=== PATIENT | male | born 1985 | race Caucasian/White ===

== ENCOUNTER 2018-07-22 05:11 | Inpatient (IN) ==
[2018-07-22] MEDS ORDERED: LR 1,000 ML ONE (05:37)
[2018-07-22] MEDS ORDERED: KEFZOL 2 GM/D5W 2 GM/50 ML IVPB ONE (05:37)
[2018-07-22] MEDS ORDERED: DIPRIVAN 1% ONE (06:39)
[2018-07-22] MEDS ORDERED: XYLOCAINE-MPF 2% ONE (06:39)
[2018-07-22] MEDS ORDERED: QUELICIN (DOSE) ONE (06:41)
[2018-07-22] MEDS ORDERED: FENTANYL ONE (06:43)
[2018-07-22] MEDS ORDERED: VERSED ONE (06:43)
[2018-07-22] MEDS ORDERED: OFIRMEV 1000 MG/ISOTONIC SOLN 1,000 MG/100 ML BOTTLE ONE (07:37)
[2018-07-22] MEDS ORDERED: MORPHINE IV PRN (07:45)
[2018-07-22] MEDS ORDERED: PERCOCET-5 ONE (08:09)
[2018-07-22] MEDS: MORPHINE ONE ×2 (08:21→09:07)
--- NOTE | 2018-07-22 09:18 | OPERATIVE NOTE ---
PROCEDURE DATE: 07/22/2018 PREOPERATIVE DIAGNOSES: 1. Right index finger distal phalanx osteomyelitis. 2. Right index finger middle phalanx osteomyelitis. 3. Right index finger mallet finger. POSTOPERATIVE DIAGNOSES: 1. Right index finger distal phalanx osteomyelitis. 2. Right index finger middle phalanx osteomyelitis. 3. Right index finger mallet finger. PROCEDURES: 1. Right index finger irrigation and debridement to bone of the distal phalanx and the middle phalanx. 2. Right open reduction and percutaneous pinning of mallet finger index. SURGEON: Dr. Evan Alamo. PRODUCT TEST SPECIALIST: None. ANESTHESIA: General with LMA. ESTIMATED BLOOD LOSS: 10 mL. SPECIMENS: Cultures were taken. IMPLANTS: K-wire. DISPOSITION: To PACU, hemodynamically stable. INDICATION FOR PROCEDURE: Mr. Chairez is a 32-year-old male, who I have seen in clinic for evaluation of his right finger. He had an injury about a month ago. Unfortunately, he still has a lot of redness, pain and again MRI which did show some significant change of both the distal phalanx and the middle phalanx of that index finger. So, discussed with him about operative intervention. He expressed understanding and wished to proceed. DESCRIPTION OF PROCEDURE: Mr. Chairez was identified at preoperative holding area. The right index finger was marked as the correct surgical site. He was then wheeled to the operating room, placed supine on the operating table. All bony prominences well padded. He was induced under general anesthesia. LMA was placed. Right upper extremity was then prepped with chlorhexidine gluconate scrub and then ChloraPrep, and draped in normal sterile fashion. Surgical pause was performed. We identified the correct patient, correct side, and the correct procedure. Preop antibiotics were given. I started with a Dawson drain as a finger tourniquet; that was up for about 30 minutes. I made a transverse incision over the DIP joint. Dissection was carried down. I did not see a lot of purulence in the soft tissues. Came down to the joint. The cartilage looked pretty good there. I then extended that incision proximally on the ulnar side of the transverse incision, and made a flap of skin back so we could see the dorsal aspect of that middle phalanx. I made a little window in the dorsal aspect of the bone, and there was just what looked like a little bit of purulence down in the bone itself. It did not look terrible, but I went ahead and curetted that area out to get back to good-appearing bone. Then I did the same thing with the distal phalanx. I was able to go dorsally, go down inside the bone, and it seemed like there was just a little bit of purulence that was there. I did curette that out and open it up. Then we irrigated everything copiously with normal saline. I then used a K-wire and was able to pin the finger straight in extension at the DIP joint. I then closed it with nylon. Adaptic, 4 x 4s, and soft dressing were applied. Tourniquet was let down. He had good capillary refill return to the finger. He was then wheeled from general anesthesia, moved to his own bed and taken to the PACU in stable condition. Postop he will be admitted to the hospital. I will get Infectious Disease to see him, and will wait for his cultures to come back and tailor his antibiotics. cc: Evan Alamo MD
[2018-07-22] MEDS ORDERED: VANCOMYCIN IV PER PHARMACY MISC SCH (11:45)
--- NOTE | 2018-07-22 12:17 | INFECTIOUS DISEASE CONSULT REP ---
DATE: 07/22/2018 CONCLUSION: Patient is status post surgery performed by Dr. Alamo for osteomyelitis of the right index finger. Gram stain from the material of surgery shows no bacteria. RECOMMENDATIONS: I have discontinued the cefazolin and started the patient on vancomycin and cefepime pending final culture results. I have ordered for tomorrow a CBC and BMP also. DISCUSSION: The patient on June 20 cut his right index finger with a knife by accident. The finger proceeded to swell up despite being given 2 rounds of antibiotics. He was taken to surgery by Dr. Alamo. PAST MEDICAL HISTORY/REVIEW OF SYSTEMS: Eyes and ears: No difficulty hearing or seeing. Neck: No stiffness. Respiratory: No cough or shortness of breath. Cardiac: No chest pain or palpitations. GI: No nausea, vomiting, or diarrhea. : No dysuria or flank pain. Bones, joints, muscles: See present illness. Neurologic: The patient does not have seizures. He has not recently lost any motor or sensory function. PREVIOUS HOSPITALIZATIONS AND OPERATIONS: He has had extraction of teeth. He has had tonsillectomy and he once was admitted with rhabdomyolysis which occurred when he was exercising in hot weather without keeping himself hydrated. MEDICAL DISEASES: Positive for rhabdomyolysis. Negative for diabetes for hypertension. INFECTIOUS DISEASE HISTORY: Negative for pneumonia and UTI. FAMILY HISTORY: Positive for diabetes mellitus, hypertension, myocardial infarction, and cancer. SOCIAL HISTORY: [place]; he is . He is a patients transporter. He chews tobacco. He occasionally drinks alcoholic beverages. He does not abuse drugs. He has dogs and cats as pets. MEDICATIONS: He takes Adderall and Prozac at home. ALLERGIES: He has no known drug allergies. PHYSICAL EXAMINATION: Vital Signs: Temperature is 98 degrees, pulse 60, respirations 20, blood pressure 150/70. Patient is 6 feet tall, weighs 215 pounds. General: This is a healthy- appearing, slightly obese, young male. He is in no acute distress. Head, eyes, ears, nose, and throat: Can hear my spoken words and see near objects. No drainage noted from the nose or ears. He does not have any white coating on his tongue. Neck: There is no pain when he moves his head. Lungs: Clear to auscultation. Cardiovascular: Regular heart rate. Abdomen: Soft and nontender. Neurologic: Patient is alert, he can move his extremities. There is no tremor. His sensation is intact to touch. His memory as regarding his medical history is good. Integument: No rash. Extremities: The patient's right index finger has a large dressing around it; the dressing is intact. Thank you for the consult. cc: MD Evan Powell MD
[2018-07-22] MEDS: ADDERALL PO SCH (12:42)
[2018-07-22] MEDS ORDERED: KEFZOL 1 GM/D5W 1 GM/50 ML IVPB IV SCH (15:00)
[2018-07-22] MEDS: MAXIPIME 2 GM in NS 100 ML IV SCH (15:27)
[2018-07-22] MEDS: OXY IR PO PRN ×2 (15:33→20:00)
[2018-07-22] MEDS: VANCOMYCIN 2 GM in NS 500 ML IV SCH (17:25)
[2018-07-22] MEDS: PERIDEX MT SCH (21:25)
[2018-07-23] MEDS: MAXIPIME 2 GM in NS 100 ML IV SCH ×2 (03:48→15:11)
[2018-07-23] MEDS: VANCOMYCIN 2 GM in NS 500 ML IV SCH ×2 (04:27→16:48)
[2018-07-23 06:14] LABS: BASO# 0.02 X1000 (0.0-0.2); BASO% 0.2 % (0.0-0.8); EOS# 0.04 X1000 (0.0-0.7); EOS% 0.3 % (0.0-10.0); HEMATOCRIT 41.8 % (42.0-52.0); HEMOGLOBIN 14.6 g/dL (14.0-18.0); LYMPH# 2.23 X1000 (1.2-3.4); LYMPH% 16.8 % (20.5-51.1); MCH 31.1 PG (27-31); MCHC 34.9 g/dL (33-37); MCV 88.9 FL (81-99); MONO# 0.91 X1000 (0.11-0.59); MONO% 6.9 % (1.7-9.3); MPV 10.5 FL (7.4-10.4); NEUT# 10.04 X1000 (1.4-6.5); NEUT% 75.8 % (42.2-75.2); PLT 225 X1000 (130-400); RDW 11.7 % (11.5-14.5); WBC 13.24 X1000 (4.8-10.8)
[2018-07-23 06:34] LABS: AGAP 8; BUN 15 mg/dL (8-22); CALCIUM 8.8 mg/dL (8.8-10.2); CHLORIDE 104 mmol/L (98-107); COSMO 280; CREATININE 0.9 mg/dL (0.7-1.2); ESTIMATED GFR > 60; GLUCOSE 121 mg/dL (70-104); POTASSIUM 4.4 mmol/L (3.5-5.1); SODIUM 139 mmol/L (136-145); TCO2 27 mmol/L (25-35)
[2018-07-23] MEDS: ADDERALL PO SCH ×2 (08:01→15:10)
[2018-07-23] MEDS: OXY IR PO PRN ×3 (08:01→20:58)
[2018-07-23] MEDS: PROZAC PO SCH (08:01)
[2018-07-23] MEDS: PERIDEX MT SCH ×2 (09:55→20:58)
--- NOTE | 2018-07-23 12:05 | INFECTIOUS DISEASE PROGRESS NO ---
DATE: 07/23/2018 PRESENT ILLNESS: The patient has osteomyelitis of the right index finger. He underwent surgery performed yesterday by Dr. Alamo for it. MEDICATIONS: The patient is on a combination of cefepime and vancomycin. PHYSICAL EXAMINATION: Vital Signs: Temperature is 99 degrees, pulse 79, respirations 16, blood pressure 145/83. General: This is a healthy-appearing, young male. He is in no acute distress. Head, Eyes, Ears, Nose, and Throat: He can hear my spoken words and see near objects. He does not have any white patches on his tongue. Neck: He does not have any pain when he moves his neck. Lungs: Clear to auscultation. Cardiovascular: Heart rate is regular. Abdomen: Soft and nontender. Extremities: The patient has a dressing on the right index finger. Neurologic: The patient is alert. He can move his extremities. There is no tremor. LAB AND X-RAY: There is no new radiographic study. CBC today shows a white count of 13,240, hemoglobin 14.6, and platelet count 225,000. Creatinine is 0.9. GFR is greater than 60. Both the Gram stain and culture from the patient's finger thus far are negative. ASSESSMENT AND PLAN: The patient has osteomyelitis of the right index finger. I am awaiting the final culture results but tomorrow, if everything is still negative, I will go ahead and have a peripherally inserted central catheter placed and make arrangements for him to have vancomycin and cefepime at home. COMORBIDITIES: The only one was that he, by accident, cut his right index finger and it became infected, and from that, he developed osteomyelitis. cc: MD Evan Powell MD
--- NOTE | 2018-07-23 12:33 | ORTHOPAEDICS PROGRESS NOTE ---
DATE: 07/23/2018 SUBJECTIVE: Mr. Chairez is lying in bed this morning, overall feeling okay. OBJECTIVE: Right upper extremity: Dressing is clean, dry, and intact. The hand is in good position. He has good capillary refill to the tip. ASSESSMENT: Status post right index finger irrigation and debridement of the distal phalanx and proximal phalanx with pinning of the distal interphalangeal joint. PLAN: Dr. Lopez is on board from an Infectious Disease standpoint. We are awaiting the cultures to come back. If something does come back and grow out, then we will tailor the antibiotics to that. I would recommend IV antibiotics since this did look like osteomyelitis, so we will continue to follow. We will more than likely to keep the dressing on for several more days. cc: Evan Alamo MD
[2018-07-24] MEDS: MAXIPIME 2 GM in NS 100 ML IV SCH ×2 (04:01→15:30)
[2018-07-24] MEDS: VANCOMYCIN 2 GM in NS 500 ML IV SCH ×2 (05:06→19:07)
[2018-07-24] MEDS: PROZAC PO SCH (10:02)
[2018-07-24] MEDS: ADDERALL PO SCH ×2 (10:02→17:42)
[2018-07-24] MEDS: PERIDEX MT SCH ×2 (10:02→23:26)
--- NOTE | 2018-07-24 10:45 | PROGRESS NOTE ---
DATE: 07/24/2018 SUBJECTIVE: Mr. Chairez is lying in bed this morning, overall doing well. Right upper extremity exam dressing is clean, dry, and intact. Pin is in good position. He has good capillary refill to the tip. ASSESSMENT: Status post right irrigation, debridement, index finger and pinning. PLAN: Nothing has grown out of Mr. Chairez's cultures yet. Dr. Lopez' note said that if there is nothing grown, will more than likely put a PICC in and treat him with vancomycin and cefepime. I will start getting everything set up, and we will plan on discharge tomorrow. cc: Evan Alamo MD
--- NOTE | 2018-07-24 12:18 | INFECTIOUS DISEASE PROGRESS NO ---
DATE: 07/24/2018 PRESENT ILLNESS: The patient is status post debridement of the patient's right index finger osteomyelitis. MEDICATIONS: The patient is on a combination of cefepime and vancomycin. PHYSICAL EXAMINATION: Vital Signs: Temperature is 98 degrees, pulse 74, respirations 16, blood pressure 135/71. General: This is a healthy-appearing young male. He is in no acute distress. Head, Eyes, Ears, Nose, and Throat: He can hear my spoken words and see near objects. He does not have any white coating of his tongue. Neck: He does not have any pain when he moves it. Lungs: Clear to auscultation. Cardiovascular: Heart rate is regular. Abdomen: Soft and nontender. Extremities: The patient has a dressing on his right index finger. The dressing is intact. The visible part of the finger is not erythematous. It does have a pin in it, but there is no drainage. Neurologic: Patient is alert. He can ambulate without difficulty. There is no tremor. DIAGNOSTIC STUDIES: CBC shows white count of 13,240, hemoglobin 14.6, and platelet count 225,000. Creatinine is 0.9, GFR is greater than 60. Cultures from the finger remain sterile. ASSESSMENT AND PLAN: Patient has osteomyelitis of the finger. For now, I am going to continue cefepime 2 g IV every 12 hours and vancomycin 2 g IV every 12 hours. I have put in an order for Client Support Representative to consult so that we can set up home IV antibiotics consisting of cefepime and vancomycin. If the patient's cultures remain negative tomorrow, then I will order for a PICC to be placed, and hopefully the patient can be discharged tomorrow also. COMORBIDITIES: In the only comorbidity is that unfortunately the patient cut his finger with a knife, which was an accident. cc: MD Evan Powell MD
[2018-07-25] MEDS: MAXIPIME 2 GM in NS 100 ML IV SCH (03:54)
[2018-07-25] MEDS: VANCOMYCIN 2 GM in NS 500 ML IV SCH (04:57)
[2018-07-25] MEDS: PERIDEX MT SCH (08:55)
[2018-07-25] MEDS: ADDERALL PO SCH (08:55)
[2018-07-25] MEDS: PROZAC PO SCH (08:55)
[2018-07-25 09:29] LABS: INR 0.94; PROTIME 13.4 Seconds (11.0-16.0)
--- NOTE | 2018-07-25 09:29 | DISCHARGE SUMMARY ---
ADMISSION DATE: 07/22/2018 DISCHARGE DATE: 07/22/2018 PREOPERATIVE DIAGNOSIS: Right index finger osteomyelitis. POSTOPERATIVE DIAGNOSIS: Right index finger osteomyelitis. PROCEDURES: On 07/22/2017, Dr. Alamo performed a right index finger irrigation and debridement to bone of the distal middle phalanx with right open reduction, percutaneous pinning of mallet finger. HOSPITAL COURSE: Mr. Chairez is a 32-year-old male who Dr. Alamo had been following in clinic for evaluation of his right finger. He had a traumatic injury about a month ago to it. He was placed on antibiotics at that time. However, he had continued redness and pain. An MRI did show significant changes in the distal and middle phalanx of the index finger. At that time, I discussed to treat this operatively. Dr. Alamo explained the risks and benefits of the procedure. The patient wished to proceed. He was taken to the operating room where satisfactory anesthesia was obtained. After the procedure, which patient tolerated well, he was transferred to the recovery room. After satisfactory recovery, he was transferred to [address] [place] [address]. The cultures were taken at the time of surgery. All cultures have come back negative so far. However, at the time of the procedure, there was purulent drainage and changes to the bone itself. So he was started on IV antibiotics and Dr. Lopez was consulted. He has been on cefepime time 2 g IV every 12 hours and vancomycin 2 g IV every 12 hours. We are working on getting him a PICC line and getting IV antibiotics set up. Even though the cultures are negative, because of the known infection to the bone, we will still plan on him getting the PICC line and continuing his IV antibiotics. Dr. Lopez is working on setting up the IV antibiotics. After he gets his PICC line placed today, he can go home. DISCHARGE MEDICATIONS: 1. Cefepime 2 g IV every 12 hour. 2. Vancomycin 2 g IV every 12 hour. 3. Percocet 5 mg p.o. as needed for pain. 4. Prozac 20 mg p.o. every morning. 5. Adderall 20 mg p.o. b.i.d. DISCHARGE DISPOSITION: Mr. Chairez is going to be discharged home with home health for IV antibiotics. He is going to be discharged today after his PICC line can be placed. The incision today looked good. The erythema was way down and his swelling was down. He does have a pin in the finger. We discussed care for that pin and his incision. We discussed signs and symptoms of worsening infection and when to call the office. He will also be given education on how to manage his PICC line. We will follow up with him either Saturday or Saturday in the office next week. If the patient has any questions or concerns, he is welcome to call the office. He will also follow up with Dr. Lopez as an outpatient. Dictated by OTILIO Najera for Evan Alamo MD cc: OTILIO Najera MD [facility]
[2018-07-25 11:15] VITALS: BP 162/73
[2018-07-25] MEDS ORDERED: NS 250 ML ONE (11:37)
== END 2018-07-25 12:51 | disposition home health service (06) | DRG 514 ==
LOC: OR 05:11 → 4N 08:21
PROVIDERS: ADMIT Orthopaedic Surgery; ATTEND Orthopaedic Surgery
CPT/HCPCS: 36569; 76000; 80048; 80202; 82565; 85025; 85610; 87070; 87075; 87205; 94760; 94761; 94799; A9270; J0131; J0330; J0690; J0692; J2250; J2270; J3010; J3370; J7040; J7050; J7120

== ENCOUNTER 2019-01-05 15:09 | Observation (INO) ==
[2019-01-05 16:42] LABS: BASO# 0.04 X1000 (0.0-0.2); BASO% 0.3 % (0.0-0.8); EOS% 0.8 % (0.0-10.0); HEMATOCRIT 46.9 % (42.0-52.0); HEMOGLOBIN 16.7 g/dL (14.0-18.0); IMM GRAN# 0.21 X1000 (0.0-0.04); IMM GRAN% 1.6 % (0.0-0.5); LYMPH# 1.04 X1000 (1.2-3.4); MCH 30.4 PG (27-31); MCHC 35.6 g/dL (33-37); MCV 85.3 FL (81-99); MONO# 0.84 X1000 (0.11-0.59); MONO% 6.4 % (1.7-9.3); MPV 10.7 FL (7.4-10.4); NEUT# 10.84 X1000 (1.4-6.5); NEUT% 82.9 % (42.2-75.2); PLT 262 X1000 (130-400); RDW 12.2 % (11.5-14.5); WBC 13.07 X1000 (4.8-10.8)
--- NOTE | 2019-01-05 16:46 | Diag Imaging Result Doc PS360 ---
EXAM: CHEST-2 VIEWS HISTORY: CP TECHNIQUE: Chest two views COMPARISON: None. FINDINGS: The lungs are well expanded. The heart is not enlarged. The vessels are not distended. There are no infiltrates. No pleural effusions. IMPRESSION: No acute abnormality. Electronically signed by Xu George 01/05/2019 4:44 PM
[2019-01-05 16:53] LABS: CALCIUM 10.6 mg/dL (8.8-10.2); CREATININE 1.6 mg/dL (0.7-1.2); POTASSIUM 4.7 mmol/L (3.5-5.1)
[2019-01-05 16:59] LABS: BILIRUBIN URINE NEGATIVE (NEGATIVE); BLOOD URINE 1+ (NEGATIVE); CLARITY SL. CLOUDY (CLEAR); COLOR YELLOW; GLUCOSE URINE NEGATIVE (NEGATIVE); KETONE URINE 1+(Small) mg/dL (NEGATIVE); LEUKOCYTES URINE NEGATIVE (NEGATIVE); NITRITE URINE NEGATIVE (NEGATIVE); PROTEIN URINE 2+(100 mg/dL) mg/dL (NEGATIVE); UROBILINOGEN URINE NORMAL
[2019-01-05 17:28] LABS: URINE BACTERIA 1+ /HFP
[2019-01-05 17:29] LABS: URINE CAST NONE SEEN /LPF; URINE CRYSTAL URIC ACID PRESENT /HPF; URINE EPITHELIAL CELLS <10 /HPF (<10); URINE SOURCE CLEAN CATCH; URINE WBC <10 /HPF (<10); URINE YEAST NONE SEEN /HPF
--- NOTE | 2019-01-05 18:19 | EKG Report ---
Test Performed on : 01/05/2019 5:42:23 PM Test Reason : CP Blood Pressure : / mmHG Vent. Rate : 088 BPM Atrial Rate : 088 BPM P-R Int : 156 ms QRS Dur : 088 ms QT Int : 356 ms P-R-T Axes : 058 026 019 degrees QTc Int : 430 ms Normal sinus rhythm. Normal ECG When compared with ECG of 05-JAN-2019 15:37, (Unconfirmed) No significant change was found Confirmed by Christopher Pelaez MD ([id number]) on 01/07/2019 9:09:59 PM
--- NOTE | 2019-01-05 18:27 | PROVIDER DOCUMENTATION ---
This chart was entered by Rosalba Velásquez Scribe, acting as scribe for Shar De Dios MD. HPI-Chest Pain - General Chief Complaint: Chest Pain Stated Complaint: CHEST PAIN Time Seen by Provider: 01/05/19 15:19 Source: patient Allergies/Adverse Reactions: Patient Allergies Allergy/AdvReac Type Severity Reaction Status Date / Time No Known Allergies Allergy Verified 07/22/18 05:33 Home Medications: Home Medication List Medication Instructions Recorded Confirmed Last Taken Type Dextroamphetamine/Amphetamine 20 mg PO BID 08/30/17 07/22/18 07/21/18 12:00 History [Adderall 20 mg Tablet] Fluoxetine HCl [Prozac] 20 mg PO QAM 08/30/17 07/22/18 07/21/18 12:00 History Hydrocodone/Acetaminophen [[place] 1 - 2 tab PO Q4-6H PRN PRN #40 tab 07/25/18 Unknown Rx 5-325 Tablet] - History of Present Illness-CP Nature of Presenting Problem: Patient is a 33 year old male who presents with chest pain. States shortness of breath and nausea with chest pain. Reports symptoms started this afternoon while running. Denies history of HTN. History of angina with exercising. Location: reports: substernal Chest Pain Radiation: reports: no radiation Quality of Pain: reports: sharp Severity in ED: mild Onset/Duration: this afternoon Timing: gone now Context/Activities at Onset: reports: light activity Modifying Factors: worse with: exercise Associated Symptoms: reports: nausea, shortness of breath Similar Symptoms Previously?: No Recently Seen Here or By Another Healthcare Provider: No Review of Systems - Adult - REVIEW OF SYSTEMS - ADULT Constitutional: reports: no symptoms reported. denies: chills, fever, fatique Eyes: reports: no symptoms reported Ears, Nose, Mouth & Throat: reports: no symptoms reported Cardiovascular: reports: no symptoms reported. denies: chest pain, irregular heart rate, palpitations Respiratory: reports: no symptoms reported. denies: cough, shortness of breath, wheezing Gastrointestinal: reports: no symptoms reported. denies: abdominal pain, na usea, vomiting Genitourinary: reports: no symptoms reported Musculoskeletal: reports: no symptoms reported Integumentary: reports: no symptoms reported Neurological: reports: no symptoms reported Psychiatric: reports: no symptoms reported Endocrine: reports: no symptoms reported Hematologic/Lymphatic: reports: no symptoms reported Allergic/Immunologic: reports: no symptoms reported All Other Systems: Reviewed and Negative Past History - Adult - PAST MEDICAL HISTORY-ADULT Review of Records: reports: Old Records Reviewed, Social history reviewed & non- contributory. Major Childhood Illnesses: reports: denies history Cardiovascular: reports: denies history Respiratory: reports: denies history Gastrointestinal: reports: denies history Obstetrical/Gynecological: reports: denies history Genitourinary: reports: denies history Musculoskeletal: reports: denies history Neurological: reports: denies history Endocrine/Immune: reports: denies history Other Conditions: reports: denies history - PRIOR SURGERIES/PROCEDURES Surgical/Procedure History: reports: tonsillectomy - IMMUNIZATION STATUS Childhood Immunizations: See Nurse Assessment Flu Vaccine: See Nurse Assessment - FAMILY HISTORY Family History: reviewed, not pertinent - SOCIAL HISTORY Smoking: denies Substance Use: denies Physical Exam-General - PHYSICAL EXAM-ADULT Initial Vital Signs Reviewed: Yes - CONSTITUTIONAL General Appearance: alert, no apparent distress. negative: lethargic - HEAD, EARS, NOSE, MOUTH & THROAT HENMT: normocephalic/atraumatic, moist mucous membranes. negative: angioedema - RESPIRATORY Respiratory: chest non-tender, lungs clear, normal breath sounds. negative: crackles, rales, increased rate - CARDIOVASCULAR Cardiovascular: normal peripheral pulses, regular rate, rhythm. negative: tachycardia - GASTROINTESTINAL (ABDOMEN) Abdominal Exam: normal bowel sounds, non tender, soft. negative: distended, guarding, rebound - MUSCULOSKELETAL Back Exam: normal inspection. negative: ecchymosis, muscle spasm Extremity: non-tender, normal inspection. negative: deformity, swelling - SKIN Integumentary: normal color, normal turgor, warm/dry. negative: diaphoresis, ecchymosis, jaundice, rash - NEUROLOGIC Neurologic: grossly normal. negative: aphasia, facial droop - PSYCHIATRIC Psych/Mental Status: normal mood/affect, oriented x 3. negative: disheveled - HEART Score HEART Score: History: Moderately Suspicious HEART Score: ECG: Normal HEART Score: Age: < or = 45 Years HEART Score: Risk Factors for Atherosclerotic Disease: No Risk Factors Known HEART Score: Troponin: < or = Normal Limit Total HEART Score:: 1 Progress - PLAN OF CARE/RESULTS Progress/Plan/Lab Results: Vital Signs - 8 hr 01/05/19 15:13 01/05/19 16:06 Temperature 98 F 98.2 F Pulse Rate 120 H 106 H Respiratory Rate 19 16 Blood Pressure 154/98 137/86 O2 Sat by Pulse Oximetry 96 98 Laboratory Results - last 24 hr 01/05/19 01/05/19 01/05/19 16:20 16:20 16:20 WBC 13.07 H RBC 5.50 Hgb 16.7 Hct 46.9 MCV 85.3 MCH 30.4 MCHC 35.6 RDW Std Deviation 12.2 Plt Count 262 MPV 10.7 H Immature Gran % (Auto) 1.6 H Neut % (Auto) 82.9 H Lymph % (Auto) 8.0 L [place] % (Auto) 6.4 Eos % (Auto) 0.8 Baso % (Auto) 0.3 Immature Gran # (Auto) 0.21 H Neut # (Auto) 10.84 H Lymph # (Auto) 1.04 L [place] # (Auto) 0.84 H Eos # (Auto) 0.10 Baso # (Auto) 0.04 D-Dimer, Quantitative 0.44 Sodium 142 Potassium 4.7 Chloride 99 Carbon Dioxide 26 Anion Gap 17 BUN 21 Creatinine 1.6 H Estimated GFR/1.73 m2 51 BUN/Creatinine Ratio 13 Glucose 78 Calculated Osmolality 285 Calcium 10.6 H Troponin T Urine Source Urine Color Urine Clarity Urine pH Ur Specific [place] Urine Protein Urine Ketones Urine Blood Urine Nitrite Urine Bilirubin Urine Urobilinogen Urine Microscopic RBC Urine WBC Urine Microscopic WBC Ur Epithelial Cells Urine Crystals Urine Bacteria Urine Casts Urine Yeast Urine Glucose 01/05/19 01/05/19 16:20 16:50 WBC RBC Hgb Hct MCV MCH MCHC RDW Std Deviation Plt Count MPV Immature Gran % (Auto) Neut % (Auto) Lymph % (Auto) [place] % (Auto) Eos % (Auto) Baso % (Auto) Immature Gran # (Auto) Neut # (Auto) Lymph # (Auto) [place] # (Auto) Eos # (Auto) Baso # (Auto) D-Dimer, Quantitative Sodium Potassium Chloride Carbon Dioxide Anion Gap BUN Creatinine Estimated GFR/1.73 m2 BUN/Creatinine Ratio Glucose Calculated Osmolality Calcium Troponin T < 0.010 Urine Source CLEAN CATCH Urine Color YELLOW Urine Clarity SL. CLOUDY A Urine pH 5.0 Ur Specific [place] 1.020 Urine Protein 2+(100 mg/dL) A Urine Ketones 1+(Small) A Urine Blood 1+ A Urine Nitrite NEGATIVE Urine Bilirubin NEGATIVE Urine Urobilinogen NORMAL Urine Microscopic RBC 10-20 A Urine WBC NEGATIVE Urine Microscopic WBC <10 Ur Epithelial Cells <10 Urine Crystals URIC ACID PRESENT Urine Bacteria 1+ Urine Casts NONE SEEN Urine Yeast NONE SEEN Urine Glucose NEGATIVE Orders Category Date Time Status Cardiac Monitoring DIRECTED Care 01/05/19 16:07 Active Saline Loc NOW Care 01/05/19 16:07 Active CHEST-2 VIEWS [RAD] Stat Exams 01/05/19 16:09 Completed BASIC METABOLIC PANEL [CHEM] Stat Lab 01/05/19 16:20 Completed CBC WITH ELECTRONIC DIFF [HEME] Stat Lab 01/05/19 16:20 Completed D-DIMER [COAG] Stat Lab 01/05/19 16:20 Completed TROPONIN T Stat Lab 01/05/19 16:[address] W/POSS RFLX CULT [URINALYSIS] Stat Lab 01/05/19 16:50 Completed CP/Palp <45 No Known Cardiac Hx Stat Oth 01/05/19 15:19 Ordered EKG [EKG] Stat Ther 01/05/19 15:20 Ordered EKG [EKG] Stat Ther 01/05/19 16:09 Draft Result Diagrams: 01/05/19 16:20 01/05/19 16:20 - EKG 1 Time of EKG reading by physician:: 15:37 EKG Read and Signed by:: Shar De Dios EKG Interpretation (*Must complete 3 of following elements*): Abnormal Rate: 106 Rhythm: sinus tachycardia [place]: normal [place] Interval: normal Comments: otherwise normal ECG - XRAY 1 XRAY Study: Chest Impression: See EMR Report ( EXAM: CHEST-2 VIEWS HISTORY: CP TECHNIQUE: Chest two views COMPARISON: None. FINDINGS: The lungs are well expanded. The heart is not enlarged. The vessels are not distended. There are no infiltrates. No pleural effusions. IMPRESSION: No acute abnormality. Electronically signed by Xu George 01/05/2019 4:44 PM 01/05/19 607 Interpreting Physician: Xu George MD Dictated Date/Time: 01/05/19 1216 cc: Shar De Dios MD; Christopher Pelaez MD) - CONSULTS/PCP/HOSPITALIST Notification #1 *Consult/PCP/Hospitalist*: Dr. Vines Time Discussed: 17:23 Reason/Comments: Dr. De Dios consulted with Dr. Vines about patient Consult Disposition: Will see in ED, Admit #2 Consult: DR EDWARDS Time Discussed: 18:10 ( pt can be seen by partner tomorrow after R/O admit tonight for set up stress testing) Departure - Departure Date of Disposition Decision: 01/05/19 Time of Disposition Decision: 18:26 DIAGNOSIS: Chest pain, Tachycardia Disposition: ADMITTED INPATIENT 09 Certified Medical Emergency: Emergent Condition: Stable Referrals and Follow-Ups: Christopher Pelaez MD [Primary Care Provider] - - Critical Care Note This patient required my direct & personal management of CC.: No Attestation - Physician/ ISABELA Attestation The physician spent face to face time with patient:: Yes Advanced Practice Provider documentation review:: Supervising physician onsite and consulted in the evaluation and care of this patient. The physician did have a face to face encounter with the patient. This chart was documented by the indicated scribe, (Rosalba Velásquez Scribe) and accurately reflects the services I performed and decisions made by me, Shar De Dios MD, as attested by the provider's signature.
[2019-01-05] MEDS ORDERED: TORADOL IV PRN (21:06)
[2019-01-05] MEDS ORDERED: TYLENOL PO PRN (21:06)
[2019-01-05] MEDS ORDERED: ZOFRAN IV PRN (21:06)
--- NOTE | 2019-01-06 08:50 | EKG Report ---
Test Performed on : 01/05/2019 3:37:35 PM Test Reason : CHEST PAIN NO HX Blood Pressure : / mmHG Vent. Rate : 106 BPM Atrial Rate : 106 BPM P-R Int : 142 ms QRS Dur : 076 ms QT Int : 326 ms P-R-T Axes : 055 039 032 degrees QTc Int : 433 ms Sinus tachycardia. Otherwise normal ECG When compared with ECG of 30-AUG-2017 02:45, No significant change was found Unconfirmed Result
[2019-01-06] MEDS ORDERED: FLU VACCINE IM ONE (12:00)
[2019-01-06 15:57] LABS: AGAP 16; ALBUMIN 4.6 g/dL (3.5-5.0); ALKALINE PHOSPHATASE 60 U/L (32-122); BUN 22 mg/dL (8-22); CALCIUM 9.5 mg/dL (8.8-10.2); CHLORIDE 109 mmol/L (98-107); COSMO 295; CREATININE 1.2 mg/dL (0.7-1.2); ESTIMATED GFR > 60; GLUCOSE 94 mg/dL (70-104); GOT 26 U/L (10-34); GPT 27 U/L (10-44); POTASSIUM 4.7 mmol/L (3.5-5.1); SODIUM 147 mmol/L (136-145); TCO2 22 mmol/L (25-35); TOTAL PROTEIN 6.8 g/dL (6.3-8.3)
[2019-01-06 16:09] LABS: CK PROFILE 417 U/L (24-204)
[2019-01-06 16:27] LABS: CK INDEX 1.1 (0.0-2.5); CK-MB 4.68 ng/mL (0.0-5.0)
[2019-01-06 16:32] VITALS: BP 118/68
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
--- NOTE | 2019-01-25 14:04 | HISTORY AND PHYSICAL ---
HISTORY OF PRESENT ILLNESS: The patient presented to the emergency room complaining of chest pain at approximately 1519. HOME MEDICATIONS: Prior to arrival included Adderall and fluoxetine and possibly some hydrocodone. The patient states that he started having chest pain associated with shortness of breath and nausea prior to his presentation. These occurred this afternoon while he was running. He denies a history of hypertension, dyslipidemia, ischemic heart disease, valvular heart disease, electrical heart disease. He has a history of chest pain with exercising. Usually this pain he is describing is in the substernal area with no radiation, described as sharp in nature, mild in intensity, began this afternoon while jogging. His chest pain is seemingly worsened by exercise associated with some nausea and shortness of breath. REVIEW OF SYSTEMS: Constitutional: No significant weight change or gain, fever or chills. Eyes: No visual acuity changes. No irritative findings in the eyes or ears. Nose and throat with no pharyngitis, otitis or sinusitis. Cardiovascular: See HPI. He denies specifically any chest pain now after the event. He denies any palpitations, irregular heartbeat. Respiratory: Denies any significant cough, shortness of breath or wheezing, cough, phlegm production or hemoptysis. No history of clot. Gastrointestinal: Denies belly pain, epigastric pain. No upper flank pains. Musculoskeletal: Negative. Skin: Clear with no rashes or lesions. Neurologic: He has no focal neurological deficits. No migraines. Psychiatric: No depression. He has perhaps some anxiety. No schizophrenia, SI or HI kind of issues. He has no symptoms of clotting or bleeding disorders, phlebitis, thrombophlebitis, DVTs, PTEs. Pulmonary: No asthma. No chronic cough. No tuberculosis. PAST SURGICAL HISTORY: He has had a previous tonsillectomy. SOCIAL HISTORY: Nonsmoker. He does not use any illegal drugs. PAST MEDICAL HISTORY: Otherwise is negative. PHYSICAL EXAMINATION: VITAL SIGNS: At the time of admission, temperature was 98, pulse was 120, respiratory rate 19, blood pressure 154/98. HEENT: Head was normocephalic. Eyes were PERRLA. EOMs intact. Sclerae clear. Fundi benign. Nares patent. Oropharynx negative. NECK: Supple. Bounding carotids. Without thyromegaly. No lymphadenopathy. SKIN: Clear. NEUROLOGICAL: Symmetric. PSYCHIATRIC: Negative. His total heart score was 1. He was admitted with atypical chest pain from the emergency room. DIAGNOSTIC DATA: He had a CBC with white count of 13,070, hematocrit was 47, platelet count was 262, neutrophils were 83%, platelet count was 262. D-dimer was 0.44. Electrolytes with normal BUN and creatinine. Creatinine was a little high at 1.6, BUN was 21. GFR guesstimated at 51. Calcium 10.6, glucose 78. D-dimer 0.55. Troponin less than 0.01. Urinalysis with 1.020 specific gravity, 1+ ketones, otherwise negative. EKG with sinus tachycardia, otherwise normal. Chest x- ray with vessels not distended, no infiltrates, no pleural effusions. EKG was normal sinus rhythm, normal EKG, no significant changes were noticed. ASSESSMENT AND PLAN: He was admitted for atypical chest pain. cc: Christopher Pelaez MD
--- NOTE | 2019-01-25 15:11 | DISCHARGE SUMMARY ---
ADMISSION DATE: 01/05/2019 DISCHARGE DATE: 01/06/2019 HISTORY OF PRESENT ILLNESS: This is 33-year-old male, generally healthy, was having some atypical chest pains associated with exercise, retrosternal in nature. He presented to the ER. He had a bit of a tachycardia and he was admitted. IMAGING/EKG: His chest x-ray on admission: Lungs were well expanded, heart was not enlarged, no infiltrates, no effusions, and the vessels were normal. He had several EKGs which were unchanged and normal. LABORATORY DATA: White count on admission was 13,000 with a slight left shift. Platelet count was 262,000. Hemoglobin was 13.07 and hematocrit was 46.9. Coags: D - dimer was 0.44 and 0.33. His initial electrolytes were normal. BUN was 21 and creatinine was 1.6, reflecting a GFR of 51. Calcium was 10.6. Subsequently, BUN was 22 and creatinine 1.2, after hydration. GFR was greater than 60. He had serial troponins and MB bands which were negative. Calcium was repeated and the initial high elevation of 10.6 was diluted down to 9.5 with fluids. VITAL SIGNS: He had a heart rate of 120 to begin. Subsequently, it dropped down to 88, 67, and 53 range. Blood pressures were well controlled. HOSPITAL COURSE: It was felt like these discomforts he had in his chest were musculoskeletal. We are going to treat him symptomatically and will follow up in the office. cc: Christopher Pelaez MD
== END 2019-01-06 19:50 | disposition home or self-care (01) ==
LOC: P.MEDSURG 15:09 → P.ED 15:09 → SUATTDRO 15:10 → P.MEDSURG 20:02
PROVIDERS: ATTEND Internal Medicine